=== PATIENT | female | born 1985 | race Caucasian/White ===

== ENCOUNTER 2018-07-18 13:53 | Emergency (ER) | payer OTHER ==
[2018-07-18 14:36] LABS: #Basophils 0.1 thou/uL (0.0-0.2); #Eosinphils 0.3 thou/uL (0.0-0.7); #Lymphocytes 2.4 thou/uL (1.20-3.40); #Monocytes 0.8 thou/uL (0.11-0.59); #Neutrophils 10.5 thou/uL (1.40-6.50); %Basophils 0.4 % (0.0-1.0); %Lymphocytes 16.8 % (21.0-51.0); %Neutrophils 74.8 % (42.0-75.0); Hemoglobin 13.1 g/dL (12.0-16.0); Mean Corpuscular Hemoglobin 31.1 pg (27.0-31.0); Mean Corpuscular Volume 88.9 fL (78.0-98.0); Mean Platelet Volume 7.8 fL (7.4-10.4); Platelet Count 212 thou/uL (130-400); Red Blood Cell (RBC) Count 4.21 mill/uL (4.20-5.40)
[2018-07-18 14:58] LABS: ALT (SGPT) 12 U/L (8-55); AST (SGOT) 13 U/L (5-34); Albumin 3.2 g/dL (3.5-5.0); Alkaline Phosphatase 55 U/L (40-150); Anion Gap 12 mmol/L (10-20); BUN (Urea Nitrogen) 7 mg/dL (7.0-18.7); Bilirubin, Total 0.5 mg/dL (0.2-1.2); Calc. Creatinine Clearance 0 mL/min (70-130); Carbon Dioxide 20 mmol/L (22-29); Chloride 107 mmol/L (98-107); Estimated GFR-MDRD 84; Globulin 2.9 g/dL (2.4-3.5); Glucose 91 mg/dL (70-105); Lipase 14 U/L (8-78); Potassium 3.5 mmol/L (3.5-5.1); Protein, Total 6.1 g/dL (6.0-8.3); Sodium 135 mmol/L (136-145)
[2018-07-18 14:59] LABS: Bilirubin Negative (Negative); Blood, Urine Negative (Negative); Clarity CLEAR (Clear); Glucose, Urine (Dipstick) Negative (Negative); Leukocyte Small (Negative); Nitrite Negative (Negative); Protein, Urine (Dipstick) Negative (Neg-Trace); Specific Gravity, Urine 1.006 (1.002-1.036); Urobilinogen 0.2 mg/dL (0.2-1.0)
[2018-07-18 15:03] LABS: Bacteria/HPF Rare-Few HPF (None Seen); Hyaline Casts/LPF 0-3 HYALINE CAST LPF (0-3 Hyaline); Pathc Cast-AUWi Flag 0.29 (0-2.49); RBC/HPF 0-3 HPF (0-3); Squamous Epithelial 0-3 HPF (0-3)
--- NOTE | 2018-07-18 16:09 | ULT ---
PELVIC ULTRASOUND 07/18/18 COMPARISON: None. HISTORY: Pelvic pain. TECHNIQUE: Multiplanar toney scale sonographic imaging of the pelvis is obtained with transabdominal imaging. Ova katie are assessed with color flow/spectral analysis. FINDINGS: An intrauterine gestation sac is present. The uterus measures 10.9 x 8.4 x 9.0 cm. Intrauterine gesta tional sac contains a pole with a heart rate of 150 beats per minute. No evidence for sub chorionic hemorrhage. No free fluid is noted. Right ovary measures 3.7 x 2.5 x 2.4 cm and left ovary measures 3.3 x 2.4 x 1.2 cm. There is normal b lood flow without evidence for mass associated with bilateral ovaries. Basile-rump length is 4.1 cm, correlating with an 11 week, 0 day gestation. Estimated date of delivery is 02/06/19. IMPRESSION: Intrauterine gestation as detailed above. No adverse features. POS: [facility]
== END 2018-07-18 16:49 | disposition home or self-care (01) ==
LOC: ERS 13:53
DX: O99.89 Other specified diseases and conditions complicating pregnancy, childbirth and the puerperium (principal); R10.31 Right lower quadrant pain; Z3A.10 10 weeks gestation of pregnancy
CPT/HCPCS: 36415; 76856; 80053; 81003; 81015; 83690; 84702; 85025; 93976